=== PATIENT | female | born 1955 | race African-American/Black ===

== ENCOUNTER 2024-06-11 08:53 | Outpatient (CLI) | payer MEDICARE, OTHER, SELFPAY ==
--- NOTE | ~2024-06-11 | PE_ITS ---
EXAMINATION: PET skull to mid thigh DATE: 06/11/2024 10:48 INDICATION: Abnormal findings on diagnostic imaging TECHNIQUE: Blood glucose level was 110 mg/dL. 10.353 mCi of 18-fluorodeoxyglucose (18-FDG) was admini stered i.v. Low dose computed tomography (CT) images were acquired from the base of the brain to the proximal thighs for attenuation correction and anatomic localization. Positron emission tomography (P ET) images were acquired in the same distribution beginning 58 minutes after injection. Images includ ing fused PET/CT images were reconstructed in axial, coronal, and sagittal planes. Automated exposure control technique was employed. The dose-length product was 892.02mGy-cm. COMPARISON: None FINDINGS: Head/neck: There is symmetric increased activity in the nasal and oral cavities, laryngeal muscles and ocular mu scles without CT correlate, likely physiologic. No pathologically enlarged cervical lymphadenopathy o r suspicious foci of increased FDG uptake in the visualized head or neck. Chest: Discoid atelectasis at the lingula. No suspicious pulmonary nodules, pneumonia, pulmonary edema or pl eural effusion. Heart size is normal. Atherosclerotic coronary artery and aortic valve calcification. No pericardial effusion. Vascular is normal in caliber. There is FDG avid mediastinal and right kimberley r lymphadenopathy. For reference a 2.0 x 1.8 cm inferior right paratracheal lymph node demonstrates m aximal SUV of 7.2 and the larger of a proximally sized AP window lymph nodes measuring 3.1 x 1.1 cm w ith maximal SUV of 6.5. There is also a 2.1 x 1.3 similar subcarinal lymph node with maximal SUV of 6.3. Abdomen/pelvis/proximal thighs: Physiologic renal accumulation and excretion of FDG activity in the kidneys, bladder and along portio ns of ureters. Normal degree and heterogenous pattern of increased uptake throughout the liver withou t radiologic correlate or dominant FDG avid lesion. The gallbladder, pancreas, spleen and bilateral a drenal glands are normal. Mild to moderate uptake scattered throughout the bowels without radiologic correlate, also likely physiologic. There is an enlarged and FDG avid periportal and portacaval lymph adenopathy. For reference the portacaval lymph node measures 3.8 x 1.6 cm with maximal SUV of 7.7. Th ere is maximal SUV of 7.9/with the clustered periportal lymph nodes which are difficult to distinguis h from agent other on noncontrast imaging precluding quantitative assessment for size. No other abnor mal foci of increased FDG uptake or other pathologically enlarged or FDG avid lymphadenopathy in the abdomen, pelvis or proximal thighs. Musculoskeletal: Moderate to severe lower cervical and lower lumbar spondylosis. No suspicious lytic, blastic or FDG a vid bone lesions identified. Small focus of extravasated soft tissue uptake at the site of injection at the right hand. There is sheetlike dystrophic calcification along the superficial fascia overlying the bilateral gluteus medius muscles with additional dystrophic calcifications at the bilateral prox imal hamstring tendons which raises suspicion for possible dermatomyositis. Mild increased FDG uptake at the bilateral greater trochanters consistent with trochanteric bursitis. IMPRESSION: 1. Mildly enlarged and FDG avid mediastinal, right hilar, periportal and portacaval lymphadenopathy s uspicious for lymphoma. Differential would include reactive lymphadenopathy or metastatic disease alt yin no FDG avid lesions suspicious for primary malignancy is identified. Could consider either medi astinoscopy or ultrasound guided bronchoscopic biopsy of one of the mediastinal lymph nodes for furth er evaluation. 2. Sheetlike dystrophic calcifications overlying the bilateral gluteus medius muscles with additional dystrophic calcific lesion at the bilateral proximal hamstring tendons. The former suggests possible dermatomyositis.
[2024-06-11 09:23] LABS: Glucose Point of Care 110 mg/dl (65-105)
== END 2024-06-11 08:54 | disposition home or self-care (01) ==
PROVIDERS: PCP Internal Medicine; Visit Provider Internal Medicine
DX: R93.5 Abnormal findings on diagnostic imaging of other abdominal regions, including retroperitoneum (principal)
CPT/HCPCS: 78815; A9552